=== PATIENT | male | born 1990 | race Caucasian/White ===

== ENCOUNTER 2022-03-11 16:12 | Emergency (ER) | payer BC, SELFPAY ==
--- NOTE | ~2022-03-11 | XR_ITS ---
EXAM: XR hand RT min 3V DATE: 03/11/2022 17:26 HISTORY: laceration from punching mirror . COMPARISON: None available. FINDINGS: Normal mineralization. No fracture or dislocation. No lytic or blastic lesion. Joint space s are maintained. No erosion or periosteal change. Bandage material over the MCP joints. IMPRESSION: No acute osseous finding in the right hand. No radiopaque foreign body. Reviewed, dictated and finalized at location [facility] IMPRESSION: No acute osseous finding in the right hand. No radiopaque foreign b merline.
[2022-03-11 16:22] VITALS: BP 119/68; PULSE 73; RESP 18; TEMP 36.8; O2SAT 99
== END 2022-03-11 18:48 | disposition left against medical advice (07) ==
LOC: ANHED 18:59
PROVIDERS: Emergency Provider Emergency Medicine
DX: S61.411A Laceration without foreign body of right hand, initial encounter (principal); W25.XXXA Contact with sharp glass, initial encounter
CPT/HCPCS: 73130; 99199

== ENCOUNTER 2022-03-12 03:34 | Emergency (ER) | payer BC, SELFPAY ==
[2022-03-12 03:36] VITALS: BP 122/70; PULSE 67; RESP 16; TEMP 37.1; O2SAT 100
--- NOTE | 2022-03-12 03:56 | ED.EXTPRO ---
HPI - Extremity Problem General Chief complaint: Extremity Problem,Nontraumatic Stated complaint: hand lac Time Seen by Provider: 03/12/22 03:40 History of Present Illness HPI Narrative: Patient is a 31-year-old male who presents ER for right hand evaluation. Patient reports he punched a rearview mirror about 48 hours ago. Came here for evaluation a day later had x-rays performed but did not stay to be evaluated further because he had other things to do. Returns this evening for further evaluation. Wound is over the fourth and fifth MCPs and is healing on its own. No redness or drainage. Patient has preserved range of motion and no numbness or tingling. Unknown last tetanus shot. Related Data Allergies Allergy/AdvReac Type Severity Reaction Status Date / Time No Known Allergies Allergy Verified 03/12/22 03:35 Review of Systems Constitutional: Constitutional: Denies chills and Denies fever(s) Musculoskeletal: Musculoskeletal: Reports arthralgias and Denies joint swelling Integumentary/Breasts: Skin/Breast: Denies pruritus, Denies erythema and Denies rash Comments: Hand laceration Neurologic: Denies focal weakness and Denies numbness PMFSH Past Medical History Medical History (Updated 03/12/22 @ 04:06 by Augusto Grace MD) Healthy adult male Surgical History Surgical History (Updated 03/12/22 @ 04:02 by Augusto Grace MD) No history of previous surgery Exam Narrative: GENERAL: Well-appearing, well-nourished, and in no acute distress. HEAD: Normocephalic, atraumatic. HEART: Regular rate and rhythm. Normal peripheral pulses. EXTREMITIES: Focused exam of the right hand reveals bruising over the fourth and fifth MCPs. Patient has normal range of motion at these joints as well as normal strength. There is a healing flap laceration in this area as well approximately 1-1/2 cm wide. No cellulitis or drainage. Sensation intact. SKIN: Warm, dry, no rash. NEURO: Alert and oriented x3. PSYCH: Normal mood and affect. Course Course Emergency Course: Patient resting comfortably. Discussed treatment plan. Patient verbalized understanding. Tetanus updated. Patient informed of x-ray results which showed no fracture. Vital Signs Vital signs: Vital Signs Temperature 98.7 F 03/12/22 03:36 Pulse Rate 67 03/12/22 03:36 Respiratory Rate 16 03/12/22 03:36 Blood Pressure 122/70 03/12/22 03:36 Pulse Oximetry 100 03/12/22 03:36 Oxygen Delivery Room Air 03/12/22 03:36 Temperature 98.7 F 03/12/22 03:36 Pulse Rate 67 03/12/22 03:36 Respiratory Rate 16 03/12/22 03:36 Blood Pressure 122/70 03/12/22 03:36 Pulse Oximetry 100 03/12/22 03:36 Oxygen Delivery Room Air 03/12/22 03:36 Discharge Plan Discharge Clinical Impression: Contusion of hand, Hand laceration Patient Disposition: Home, Self-Care Condition: Stable Instructions: Contusion in Adults (ED), Laceration Without Closure (ED) Additional Instructions: Monitor your wound for signs of infection including redness and tenderness, increased warmth, thick drainage, or fever over 100.4 ?F. Return if you develop these signs. Your wound is going to have to heal by secondary intention as you presented too late to the ER to have it repaired. Follow-up/Referrals: PHYSICIAN NOT ON STAFF,NONSTAFF [Primary Care Provider] - 1 Week
[2022-03-12] MEDS: TETANUS,DIPHTHERIA,AC PERTUSSIS ADULT (0.5 ML) BOOSTRIX IM (04:14)
== END 2022-03-12 04:30 | disposition home or self-care (01) ==
PROVIDERS: Emergency Provider Emergency Medicine
DX: S61.411A Laceration without foreign body of right hand, initial encounter (principal); S60.221A Contusion of right hand, initial encounter; W22.09XA Striking against other stationary object, initial encounter; Z23 Encounter for immunization
CPT/HCPCS: 90471; 90715; 99282